=== PATIENT | male | born 1950 | race African-American/Black ===

== ENCOUNTER → 2016-04-21 | Outpatient (CLI) | payer OTHER ==
[~2016-04-21] MED LIST: ALBU18002 INH; ALBU1AER9 INH; AMLO-110 PO; BNC/20125 PO; CALC-393 PO; CALC500C70 PO; CHOL400T PO; CLOP1TAB15 PO; CLOP1TAB5 PO; HYDC25 PO; LPT40 PO; MISCCAP80 PO; MOME6000 NAE; MULTTAB58 PO; NSNN50 NAE; PROBIOTICS PO; SYMIN8045 INH; TADA2.5T PO; VGR25 PO
[2016-04-21 11:45] LABS: BASO % 0.5 %; BASO ABS # 0.02 K/uL (0-0.2); COMPLETE YES; EOS % 3.6 %; HEMATOCRIT 39.8 % (42-52); IG% 0.3 %; LYMPH % 18.4 %; LYMPH ABS # 0.71 K/uL (1.2-3.4); MEAN CELL VOLUME 87.3 fL (80-100); MEAN CORPUSCULAR HEMOGLOBIN 29.4 pg (25-34); MEAN CORPUSCULAR HGB CONC 33.7 g/dl (32-36); MONO % 10.1 %; NEUT % 67.1 %; PLATELET COUNT 160 K/uL (130-400); RED BLOOD COUNT 4.56 M/uL (4.7-6.1); WHITE BLOOD COUNT 3.85 K/uL (4.8-10.8)
[2016-04-21 11:56] LABS: ALT/SGPT 30 U/L (12-78); BLOOD UREA NITROGEN 14 mg/dl (7-18); BUN/CREATININE RATIO 10.2 (10-20); CALCIUM 9.3 mg/dl (8.5-10.1); CARBON DIOXIDE 25 mmol/L (21-32); CHLORIDE 104 mmol/L (98-107); CHOLESTEROL 182 mg/dl (0-200); GLUCOSE 89 mg/dl (70-99); POTASSIUM 3.9 mmol/L (3.5-5.1); SODIUM 141 mmol/L (136-145); TRIGLYCERIDES 49 mg/dl (0-150); VERY LOW DENSITY LIPOPROT CALC 10 mg/dl
[2016-04-21 12:01] LABS: ALB/GLOB RATIO 0.9 (0.9-2); ALKALINE PHOSPHATASE 47 U/L (45-117); AST/SGOT 24 U/L (15-37); CHOLESTEROL/HDL RATIO 2.2; FERRITIN 54.8 ng/ml (8.0-388.0); HDL CHOLESTEROL 83 mg/dl; LDL CHOLESTEROL CALCULATED 89 mg/dl
== END | disposition home or self-care (01) ==
LOC: C.LAB 09:57
PROVIDERS: ATTEND Internal Medicine Geriatric Medicine
DX: I10 Essential (primary) hypertension (principal); J45.909 Unspecified asthma, uncomplicated; D64.9 Anemia, unspecified; M19.90 Unspecified osteoarthritis, unspecified site; I67.2 Cerebral atherosclerosis

== ENCOUNTER → 2016-05-30 | Outpatient (CLI) | payer OTHER ==
[~2016-05-30] MED LIST changes: -ALBU18002 INH; -CALC500C70 PO; -CLOP1TAB15 PO; -MISCCAP80 PO; -MOME6000 NAE; -TADA2.5T PO
[2016-05-30 13:43] LABS: URINE APPEARANCE CLEAR (CLEAR); URINE BILIRUBIN NEG (NEG); URINE COLOR YELLOW; URINE NITRITE NEG (NEG); URINE SPECIFIC GRAVITY 1.015 (1.000-1.030); UROBILINOGEN NEG (NEG)
[2016-05-30 13:57] LABS: MANUAL MICROSCOPIC REQUIRED? NO; REVIEW REQ? NO
== END | disposition home or self-care (01) ==
LOC: C.LABBC 09:57
PROVIDERS: ATTEND Physician Assistant
DX: R25.2 Cramp and spasm (principal); R35.0 Frequency of micturition

== ENCOUNTER → 2016-11-25 | Outpatient (CLI) | payer OTHER ==
[~2016-11-25] MED LIST changes: +ALBU18002 INH; +CALC500C70 PO; +CLOP1TAB15 PO; +MISCCAP80 PO; +MOME6000 NAE; +TADA2.5T PO
[2016-11-25 20:13] LABS: BASO % 0.7 %; BASO ABS # 0.03 K/uL (0-0.2); COMPLETE YES; EOS % 5.5 %; HEMATOCRIT 40.5 % (42-52); LYMPH % 27.8 %; LYMPH ABS # 1.27 K/uL (1.2-3.4); MEAN CELL VOLUME 87.5 fL (80-100); MEAN CORPUSCULAR HEMOGLOBIN 29.8 pg (25-34); MEAN CORPUSCULAR HGB CONC 34.1 g/dl (32-36); MEAN PLATELET VOLUME 12.1 fL (7.4-10.4); MONO % 9.4 %; NEUT % 56.6 %; PLATELET COUNT 163 K/uL (130-400); RED BLOOD COUNT 4.63 M/uL (4.7-6.1); WHITE BLOOD COUNT 4.57 K/uL (4.8-10.8)
[2016-11-25 20:36] LABS: ALT/SGPT 22 U/L (12-78); BLOOD UREA NITROGEN 17 mg/dl (7-18); BUN/CREATININE RATIO 13.2 (10-20); CALCIUM 9.3 mg/dl (8.5-10.1); CARBON DIOXIDE 28 mmol/L (21-32); CHLORIDE 107 mmol/L (98-107); CHOLESTEROL 149 mg/dl (0-200); GLUCOSE 93 mg/dl (70-99); POTASSIUM 3.6 mmol/L (3.5-5.1); SODIUM 141 mmol/L (136-145)
[2016-11-25 20:47] LABS: ALB/GLOB RATIO 0.9 (0.9-2); ALKALINE PHOSPHATASE 63 U/L (45-117); AST/SGOT 20 U/L (15-37); HDL CHOLESTEROL 75 mg/dl; LDL CHOLESTEROL CALCULATED 62 mg/dl; TRIGLYCERIDES 62 mg/dl (0-150); VERY LOW DENSITY LIPOPROT CALC 12 mg/dl
--- NOTE | 2016-12-10 06:14 | CODING QUERY MEDICAL NECESSITY ---
CQSUPPORTING DIAGNOSIS NEEDED A supporting diagnosis is required for the test/procedure performed on this patient in order for us to be reimbursed by the patient's insurance. Please provide a supporting diagnosis for the following test/procedure listed below next to the test name along with your signature. *If there is no additional diagnosis for this patient that would support the following test/procedure please document that below next to the test/procedure. Test(s)/Procedure(s) that require a supporting diagnosis: DOS 11/25/16 VITAMIN B12 Provider Signature: Date: Thank you Ambreen Alvarez [employer] Once completed, please kindly fax back to [phone] For questions please call [phone]
== END | disposition home or self-care (01) ==
LOC: C.LAB 18:52
PROVIDERS: ATTEND Internal Medicine Geriatric Medicine
DX: D64.9 Anemia, unspecified (principal); I10 Essential (primary) hypertension; I67.2 Cerebral atherosclerosis; N40.0 Benign prostatic hyperplasia without lower urinary tract symptoms; Z86.73 Personal history of transient ischemic attack (TIA), and cerebral infarction without residual deficits

== ENCOUNTER → 2016-12-25 | Day surgery (SDC) | payer OTHER ==
[2016-12-10 08:36] VITALS: Ht 175.3 cm; Wt 85.5 kg
[~2016-12-25] VITALS: Ht 175.3 cm; Wt 85.5 kg
[~2016-12-25] MED LIST changes: -ALBU1AER9 INH; +BUPIVACAINE 0.25% 2.5MG/ML PF 10 ML VIAL ONE; -CALC-393 PO; -CHOL400T PO; -CLOP1TAB5 PO; -HYDC25 PO; +IOPAMIDOL INJ 61% 15 ML VIAL ONE; +LIDOCAINE HCL 1% MPF 5 ML VIAL ONE; -LPT40 PO; -NSNN50 NAE; -PROBIOTICS PO; -VGR25 PO
--- NOTE | 2016-12-25 14:48 | History & Physical Bridge - SC ---
H&P Re-Evaluation Bridge Note: I have examined the patient, reviewed the History & Physical and in the interval since the performance of the History & Physical I have noted the following changes of clinical significance: No changes noted
[2016-12-25 15:13] VITALS: TEMP 37.7
--- NOTE | 2016-12-25 15:15 | Discharge Instructions ---
Discharge Instructions Date of Service Dec 25, 2016. Visit Reason for Visit: Sacroiliitis Discharge Discharge Diagnosis / Problem: low back pain Discharge Goals Goal(s): Decrease discomfort, Improve function Activity Recommendations Activity Limitations: resume your previous activity Anesthesia . Post Anesthesia Instructions: If you have had General Anesthesia or IV Sedation: * Do not drive today. * Resume driving when surgeon permits. * Do not make important decisions or sign legal documents today. * Call surgeon for: 1. Temperature elevations greater than 101 degrees F. 2. Uncontrollable pain. 3. Excessive bleeding. 4. Persistent nausea and vomiting. 5. Medication intolerance (nausea, vomiting or rash). * For nausea and vomiting use only clear liquids such as: tea, soda, bouillon until nausea subsides, then gradually increase diet as tolerated. * If you have any concerns or questions, call your surgeon's office. If physician is unavailable and it is an emergency, call 911 or go to the nearest emergency room. . Diet Recommendations Recommended Home Diet: resume previous diet Procedures Procedures Performed: BILATERAL SACROILIAC JOINT INJECTION Pending Studies Studies pending at discharge: no Medical Emergencies . Who to Call and When: Medical Emergencies: If at any time you feel your situation is an emergency, please call 911 immediately. . Non-Emergent Contact Non-Emergency issues call your: Specialist . . "Provider Documentation" section prepared by Minor Butler. .
[2016-12-25 15:21] VITALS: BP 134/83; PULSE 71; O2SAT 98
--- NOTE | 2016-12-25 15:38 | OPERATIVE REPORT ---
DATE OF OPERATION: 12/25/2016 PREOPERATIVE DIAGNOSIS: Bilateral sacroiliitis. POSTOPERATIVE DIAGNOSIS: Same. PROCEDURE: Bilateral sacroiliac joint injection under fluoroscopic guidance. SURGEON: Dr. Minor Butler. INDICATIONS: The patient is a 66-year-old -[place] male who had received SI injections in the past, last in January 2015. He reports just recently that a similar pain started returning and being problematic to him. He presents today for injections to provide him with relief. PHYSICAL EXAMINATION: Pleasant male seated comfortably in no apparent distress. He has positive 10/10 tenderness to palpation of the SI joints with positive Lynn maneuver bilaterally, normal motor and sensory exam of his lower extremities. CONSENT: Verbal and written consent was obtained from the patient. Risks and benefits were reviewed. Risks include but are not limited to abscess and allergic reaction. The patient wishes to proceed. PROCEDURE: The patient was taken back to the special procedures room of the [facility] where he was maintained in a prone position. Backside was cleansed with Betadine x3 and a dry sterile dressing was applied. Fluoroscope was used to identify the left sacroiliac joint. The overlying skin was anesthetized with 4 mL of lidocaine 1% with a 21-gauge 1.5-inch needle. A 25 gauge 3.5 inch spinal needle was then directed into the joint. Isovue 300 contrast 0.25 mL was injected in which demonstrated intraarticular uptake. He then underwent injection after negative aspiration of 40 mg of Depo-Medrol and 1.5 mL of bupivacaine 0.25%. The right SI joint then was fluoroscopically identified and the overlying skin was anesthetized with 2.5 mL of lidocaine 1% with a 25 gauge 1.5-inch needle. A 25 gauge 3.5 inch spinal needle was then directed into the joint and it was then injected with Isovue 300 contrast 0.25 mL which demonstrated intraarticular uptake. He then underwent injection after negative aspiration of 40 mg of Depo-Medrol and 1.5 mL of bupivacaine 0.25%. Injections were well tolerated. He will follow up in 4 weeks' time. DISPOSITION: 1. The patient is taken out into the discharge recovery area where he will be discharged home once discharge criteria have been met. 2. Follow up in the [facility] office in 2-4 weeks. I attest to the content of the Intraoperative Record and any orders documented therein. Any exception s are noted below.
== END | disposition home or self-care (01) ==
LOC: X.SURG 14:15
PROVIDERS: ATTEND Physical Medicine & Rehabilitation
DX: M46.1 Sacroiliitis, not elsewhere classified (principal)

== ENCOUNTER → 2017-06-05 | Outpatient (CLI) | payer OTHER ==
[~2017-06-05] MED LIST changes: -BUPIVACAINE 0.25% 2.5MG/ML PF 10 ML VIAL ONE; -IOPAMIDOL INJ 61% 15 ML VIAL ONE; -LIDOCAINE HCL 1% MPF 5 ML VIAL ONE
[2017-06-05 15:11] LABS: BASO % 0.5 %; BASO ABS # 0.02 K/uL (0-0.2); EOS % 5.5 %; EOS ABS # 0.21 K/uL (0-0.5); HEMATOCRIT 40.8 % (42-52); HEMOGLOBIN 13.5 g/dL (14.0-18.0); LYMPH % 31.2 %; MEAN CELL VOLUME 88.7 fL (80-100); MEAN CORPUSCULAR HEMOGLOBIN 29.3 pg (25-34); MEAN CORPUSCULAR HGB CONC 33.1 g/dl (32-36); MEAN PLATELET VOLUME 11.7 fL (7.4-10.4); MONO ABS # 0.27 K/uL (0.11-0.59); NEUT % 55.8 %; NEUT ABS # 2.15 K/uL (1.4-6.5); PLATELET COUNT 177 K/uL (130-400); RED CELL DISTRIBUTION WIDTH CV 13.5 % (11.5-14.5); RED CELL DISTRIBUTION WIDTH SD 43.8 fL (36.4-46.3); WHITE BLOOD COUNT 3.85 K/uL (4.8-10.8)
[2017-06-05 15:28] LABS: BLOOD UREA NITROGEN 18 mg/dl (7-18); CALCIUM 9.1 mg/dl (8.5-10.1); CARBON DIOXIDE 27 mmol/L (21-32); GLUCOSE 89 mg/dl (70-99); POTASSIUM 3.8 mmol/L (3.5-5.1); SODIUM 137 mmol/L (136-145)
== END | disposition home or self-care (01) ==
LOC: C.LAB 14:02
PROVIDERS: ATTEND Internal Medicine Geriatric Medicine
DX: I10 Essential (primary) hypertension (principal); D64.9 Anemia, unspecified

== ENCOUNTER → 2017-06-08 | Outpatient (CLI) | payer OTHER ==
--- NOTE | 2017-06-08 10:28 | DIAGNOSTIC IMAGING REPORT ---
CHEST 2 VIEWS ROUTINE CLINICAL HISTORY: R05 Cough COMPARISON STUDY: CT scan performed March 2011 FINDINGS: The heart is normal in size. There is aortic tortuosity. There is no failure. There is no focal pulmonary consolidation. There is a 9 mm right apical pulmonary nodule. This potentially corresponds to the right apical opacity described in the prior 2011 CT scan. It would seem prudent to obtain a repeat CT scan for further evaluation. There are no pleural effusions. IMPRESSION: 1. Nonspecific 9 mm right apical opacity. CT scanning is recommended in follow-up. 2. No evidence of pneumonia Electronically signed by: Bg Monk M.D. 06/08/2017 10:27 AM Dictated Date/Time: 06/08/2017 10:23 AM
== END | disposition home or self-care (01) ==
LOC: C.RADBC 09:57
PROVIDERS: ATTEND Internal Medicine Geriatric Medicine
DX: R05 Cough (principal)

== ENCOUNTER → 2017-06-16 | Outpatient (CLI) | payer OTHER ==
--- NOTE | 2017-06-16 08:19 | DIAGNOSTIC IMAGING REPORT ---
(CHEST) THORAX WITHOUT CT DOSE: 372.13 mGy.cm HISTORY: Abnormal chest x-ray. Follow-up. TECHNIQUE: Multiaxial CT images of the chest were performed without contrast. A dose lowering technique was utilized adhering to the principles of ALARA. COMPARISON: Chest CT 04/08/2011. Abdominal MRI 10/24/2011. FINDINGS: Multiple subcentimeter biapical nodules with the largest within the left lung apex measuring 8 mm on image 48. These are stable compared to the 2012 examination and are therefore likely benign. There is an 1 cm lobular nodule within the right upper lobe on image 73. This likely corresponds the chest x-ray abnormality. This is also stable compared to the prior study. Stable 3 mm nodule within the right upper lobe on image 88. Stable 3 mm nodule within the right upper lobe on image 116. No focal lung consolidations to suggest pneumonia. No pneumothorax. No pleural effusions. The central airways are patent. No suspicious lytic or blastic osseous lesions. Multiple scattered hypodense lesions are seen throughout the liver. The majority of these are stable in size and correspond to the previously described hepatic cysts and hemangiomas. Dominant lesion within the right hepatic lobe measures 3.1 cm. The 2.7 cm hypodense lesion within the posterior segment of the right hepatic lobe has increased in size but was previously described as a hemangioma. The unenhanced spleen and adrenal glands are unremarkable. No mediastinal or hilar lymphadenopathy. IMPRESSION: 1. Multiple bilateral upper lobe/apical nodules as described above which are stable compared to the prior study. The 6 year stability favors a benign process. No new pulmonary nodules identified. 2. Multiple hypodense lesions seen scattered throughout the liver which the majority are stable in size. The 2.7 cm lesion within the posterior segment of the right hepatic lobe has increased in size. However, these were described as a common of cysts and hemangiomas on the prior study. Electronically signed by: Ronaldo Hogue M.D. 06/16/2017 8:17 AM Dictated Date/Time: 06/16/2017 8:02 AM
== END | disposition home or self-care (01) ==
LOC: C.CTS 07:49
PROVIDERS: ATTEND Internal Medicine Geriatric Medicine
DX: R05 Cough (principal); R93.8 Abnormal findings on diagnostic imaging of other specified body structures; R91.8 Other nonspecific abnormal finding of lung field; K76.9 Liver disease, unspecified

== ENCOUNTER → 2017-07-13 | Outpatient (CLI) | payer OTHER ==
--- NOTE | 2017-07-13 08:50 | DIAGNOSTIC IMAGING REPORT ---
FUSION CT SINUSES W/O CLINICAL HISTORY: 66 years-old Male presenting with COUGH, RHINITIS. TECHNIQUE: Multidetector CT of the sinuses was performed without the use of intravenous contrast. IV contrast: None. A dose lowering technique was used consistent with the principles of ALARA (as low as reasonably achievable). COMPARISON: None. CT DOSE (mGy.cm): The estimated cumulative dose is 608.33 mGy.cm. FINDINGS: Color Sprayer topogram: Unremarkable. The left maxillary canine, first and second premolar, and first molar are basically absent. A replacement tooth is evident at the level of the canine. Mild mucosal thickening in the maxillary sinuses, right greater than left. Mucosal thickening in ethmoid air cells also evident. Mastoid air cells and middle ears clear. No osseous erosion or sclerosis. Significant deviation of the bony nasal septum to the left, which appears chronic. Bilateral Shree cells suggested greater on the left. Ostiomeatal units are minimally narrowed by mucosal thickening. Similarly, nasal frontoethmoidal recesses minimally narrowed by mucosal thickening. Albino bullosa of the right middle turbinate. Bilateral Onodi cells noted with aerated secretions in the left are noted cell (series 300 image 47). Possible bony dehiscence of the right carotid siphon. No bony dehiscence of the optic canals or the left carotid siphon. Orbits normal. Limited intracranial evaluation demonstrates age-related changes. Superficial soft tissues of the face within normal limits. Skull base intact. IMPRESSION: 1. Aerated secretions in the left Onodi cell could suggest acute sinusitis. No current evidence of chronic sinusitis. 2. Multifocal mild mucosal thickening with resultant minimal narrowing of the ostiomeatal units and nasal frontoethmoidal recesses. 3. Bilateral Onodi cells, bilateral Shree cells, left middle turbinate albino bullosa, and possible bony dehiscence of the right carotid siphon. Electronically signed by: Tony Brown M.D. 07/13/2017 8:49 AM Dictated Date/Time: 07/13/2017 8:41 AM
== END | disposition home or self-care (01) ==
LOC: C.CTS 08:30
PROVIDERS: ATTEND Internal Medicine Critical Care Medicine
DX: R05 Cough (principal); J31.0 Chronic rhinitis

== ENCOUNTER 2021-08-29 09:36 | Observation (INO) ==
[2021-08-29 10:01] LABS: Hematocrit (blood only) 41.4 % (42-52); Hemoglobin 14.6 g/dL (14.0-18.0); Mean Corpuscular Hemoglobin 30.7 pg (25-34); Mean Corpuscular Hgb Conc 35.3 g/dL (32-36); Mean Corpuscular Volume 87.2 fL (80-100); RDW Standard Deviation 44.6 fL (36.4-46.3); Red Blood Count 4.75 M/uL (4.7-6.1); White Blood Count 3.06 K/uL (4.8-10.8)
[2021-08-29 10:02] LABS: Basophils # (auto) 0.02 K/uL (0-0.2); Basophils % (auto) 0.7 %; Eosinophils # (auto) 0.23 K/uL (0-0.5); Eosinophils % (auto) 7.5 %; Lymphocytes # (auto) 1.06 K/uL (1.2-3.4); Lymphocytes % (auto) 34.6 %; Mean Platelet Volume 11.2 fL (7.4-10.4); Monocytes # (auto) 0.32 K/uL (0.11-0.59); Monocytes % (auto) 10.5 %; Neutrophils # (auto) 1.43 K/uL (1.4-6.5); Neutrophils % (auto) 46.7 %; Platelet Count 170 K/uL (130-400); RDW Coefficient of Variation 13.8 % (11.5-14.5)
[2021-08-29] MEDS ORDERED: SODIUM CHLORIDE 0.9% 1000ML 1,000 ML IV ONE (10:03)
--- NOTE | 2021-08-29 10:11 | Emergency Department Note ---
History of Present Illness General Chief complaint: Vertigo Stated complaint: DIZZINESS, NAUSEA Time Seen by Provider: 08/29/21 09:48 Source: patient, family, RN notes reviewed and old records reviewed Mode of arrival: ambulatory Limitations: no limitations History of Present Illness This Patient is a 70-year-old male who comes in after complaining of dizziness. He was in his usual state of health and has had no recent illness around 630 this morning he had 2 brief episodes where he felt suddenly dizzy like the room was spinning it went away and he started PT that he is doing for a back issue and suddenly it got worse and felt like the room was spinning he threw up several times and felt sweaty. He feels better at present and has no symptoms. He denies that he had any focal numbness or weakness anywhere no headache. He has had no recent fall or trauma there is no syncope or presyncope. No difficulty speaking or swallowing he felt slightly tingly all over. It was better if he would close his eyes it was worse with movement. No neck stiffness or headache. Denies chest pain, shortness of breath, palpitations. No change in vision. He has a history of TIAs in the past and his last one was June which presented with right-sided weakness which resolved. 10 years ago he had a TIA which had left-sided weakness and double vision. Home Medications Medication Instructions Recorded Confirmed Type calcium carbonate 500 mg-vitamin 1 tab PO QAM 12/14/17 08/15/21 History D3 5 mcg (200 unit) tablet (Calcium 500 + D) lactobacillus combination no.4 3 3,000 mmu cells PO QAM 12/14/17 08/15/21 History billion cell capsule (Probiotic) multivitamin 1 tab PO QAM 12/14/17 08/15/21 History omega 8-ady-aov-fish oil 1,000 mg 1 cap PO QAM 11/17/18 08/15/21 History (120 mg-180 mg) capsule (Fish Oil) cetirizine 10 mg capsule (Zyrtec) 10 mg PO HS #1 cap 09/09/19 08/15/21 Rx cyclobenzaprine 10 mg tablet 10 mg PO TID PRN #60 tab 09/09/19 08/15/21 Rx cholecalciferol (vitamin D3) 100 100 mcg PO QAM 01/14/20 08/15/21 History mcg (4,000 unit) capsule tadalafil 5 mg tablet 5.5 mg PO HS #90 tab 09/17/20 08/15/21 Rx amlodipine 10 mg tablet 10 mg PO QAM #90 tab 10/08/20 08/15/21 Rx clopidogrel 75 mg tablet (Plavix) 75 mg PO QAM #90 tab 10/22/20 08/15/21 Rx potassium chloride 20 mEq 20 meq PO BID #180 tab 03/11/21 08/15/21 Rx tablet,extended release sildenafil 100 mg tablet (Viagra) 100 mg PO DAILY PRN #30 tab 04/25/21 08/15/21 Rx hydrochlorothiazide 25 mg tablet 25 mg PO QAM #90 tab 06/12/21 08/15/21 Rx Allergies Allergy/AdvReac Type Severity Reaction Status Date / Time silodosin [From Rapaflo] AdvReac Intermediate Insomnia Verified 08/15/21 08:40 tamsulosin AdvReac Intermediate Hypotension Verified 08/15/21 08:40 losartan AdvReac Mild Cough Verified 08/15/21 08:40 olmesartan [From Benicar] AdvReac Mild cough Verified 08/15/21 08:40 Past Med/Surg History Medical History Asthma HX OF > NO MEDICATIONS OR PROBLEMS CURRENTLY BPH (benign prostatic hyperplasia) Chronic back pain Chronic right sacroiliac joint pain Cough due to angiotensin-converting enzyme inhibitor switched to amlodipine due to this Hypertension Kidney stones HISTORY OF Lumbar spinal stenosis Osteoarthritis Right lumbar radiculopathy Transient ischemic attack (TIA) X3. LAST EPISODE JUNE 2020. NO RESIDUALS. TAKES PLAVIX Surgical History H/O prostate biopsy x2 > benign History of bronchoscopy AT AGE 17 History of colonoscopy 04/2012 repeat 10 yrs History of esophagogastroduodenoscopy (EGD) History of tooth extraction S/P epidural steroid injection Status post excision of lipoma HX > back Family History Sister Family history of diabetes mellitus Breast cancer Unknown Bipolar disorder Bleeding disorder Mother , age 93, after hip fracture and surgery Deafness Father Tuberculosis Prostate cancer Lung cancer Hypertension Family history of diabetes mellitus Sister Lung cancer Hypertension Denies family history of Ovarian cancer Myocardial infarction Colorectal cancer Social History Smoking Status: Never smoker Tobacco Type: Cigarettes Age Started Using Tobacco: 14; Age Quit Using Tobacco: 28; Cigarettes Per Day: 3 cigarettes a day; Second Hand Exposure: No; Hx Alcohol Use: Yes Alcohol type: wine Alcohol Intake Frequency: Monthly or Less Hx Substance Use: No Preferred Language: Turkish Communication Ability: Effective Visual Impairment: Limited Hearing Ability: Normal Court Collections Officer Required: No Beliefs That Will Affect Care: None marital status: Current Living Situation: Spouse current occupational status: retired current occupation: dentist How many Children do You have: 2 Feels Safe at Home: Yes Childhood Exposure to Second-Hand Smoke: Yes caffeine: Yes (coffee daily ) Dental Care, Regularly: Yes Physical Activity Frequency: 5-6 Times per Week Seatbelt Use: always Sunscreen Use: Yes Assistive Devices: Glasses Immunizations: He will history 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 [employer] Review of Systems A total of 10 systems reviewed and were otherwise negative He denies any significant allergies to me and specifically denies any allergies to IV contrast which he says he has had before Physical Exam Vital Signs Vital Signs - 24 hr 08/29/21 09:42 08/29/21 09:49 08/29/21 10:00 Temperature 36.9 C Temperature Source Oral Pulse Rate 69 72 Pulse Rate from SpO2 Sensor Pulse Rhythm Regular Pulse Strength Normal Respiratory Rate 19 19 Respiratory Effort / Characteristics Non-Labored Respiratory Depth Normal Respiratory Pattern Regular Blood Pressure 165/92 H 161/95 H Blood Pressure Mean 116 117 Blood Pressure Position Lying Pulse Oximetry 100 99 99 Oxygen Delivery Method Room Air Room Air Room Air Sepsis Recent Fever Within 48 Hours No Sepsis New/Unexplained Change in Mental Status N/A Sepsis Action Taken by Nursing No Action Required 08/29/21 10:30 08/29/21 11:06 08/29/21 11:30 Temperature Temperature Source Pulse Rate 63 70 69 Pulse Rate from SpO2 Sensor 64 Pulse Rhythm Pulse Strength Respiratory Rate 18 19 19 Respiratory Effort / Characteristics Respiratory Depth Respiratory Pattern Blood Pressure 139/88 147/99 H 156/99 H Blood Pressure Mean 105 115 118 Blood Pressure Position Pulse Oximetry 99 99 99 Oxygen Delivery Method Room Air Room Air Room Air Sepsis Recent Fever Within 48 Hours Sepsis New/Unexplained Change in Mental Status Sepsis Action Taken by Nursing 08/29/21 12:00 08/29/21 12:30 08/29/21 13:00 Temperature Temperature Source Pulse Rate 66 77 66 Pulse Rate from SpO2 Sensor Pulse Rhythm Pulse Strength Respiratory Rate 21 22 19 Respiratory Effort / Characteristics Respiratory Depth Respiratory Pattern Blood Pressure 144/80 H 143/90 H 141/90 H Blood Pressure Mean 101 107 107 Blood Pressure Position Pulse Oximetry 98 99 99 Oxygen Delivery Method Room Air Room Air Room Air Sepsis Recent Fever Within 48 Hours Sepsis New/Unexplained Change in Mental Status Sepsis Action Taken by Nursing 08/29/21 13:30 08/29/21 14:58 08/29/21 15:00 Temperature Temperature Source Pulse Rate 64 68 Pulse Rate from SpO2 Sensor Pulse Rhythm Pulse Strength Respiratory Rate 15 19 Respiratory Effort / Characteristics Respiratory Depth Respiratory Pattern Blood Pressure 133/82 151/93 H 143/86 H Blood Pressure Mean 99 112 105 Blood Pressure Position Pulse Oximetry 98 98 Oxygen Delivery Method Room Air Room Air Sepsis Recent Fever Within 48 Hours Sepsis New/Unexplained Change in Mental Status Sepsis Action Taken by Nursing General: Well developed well nourished not ill-appearing older male who appears in no acute distress, breathing comfortably on room air. Normal speech nonslur red. Alert and orient x3 answers all questions appropriately HEENT: Normal cephalic atraumatic. Pupils are equal round and reactive to light. No nystagmus. No facial asymmetry or droop extraocular movements are intact. Oropharynx is pink with moist mucous membranes. No swelling of the mouth lips or tongue. Neck: Supple with a midline trachea. No meningeal signs or stiffness, no JVD or bruits. No Stridor. Chest: Clear to auscultation bilaterally. No wheezes or rhonchi. No increased work of breathing. Heart: Regular rate and rhythm without murmurs or gallops. Abdomen: Soft nontender, nondistended without rebound guarding or rigidity. Extremities: No cyanosis clubbing or edema. No calf tenderness or assymetry Spine/Back. Non tender to palpation. No CVA tenderness Skin: Good turgor without rashes. Neurologic exam: Cranial nerves two through 12 are intact. Motor and sensation are intact and symmetrical throughout. Akqpvd-dc-abby intact. No pronator drift. Normal [id number]-io-cawr. Course Reevaluation(s) Reevaluation #1: I Checked on the patient and he is resting comfortably. he remains asymptomatic without pain or any neurologic deficits.. I did discuss the results that we duggan ve thus far with the patient and his family. I also discussed giving him some meclizine and we are going to give him 12.5. He does need to use the bathroom and I called the nursing staff and they are can use a jug so he does not get out of bed. Time: 10:40 Reevaluation #2: I checked the patient when he came back from CT. He said the movement made the dizziness start again. he has received the meclizine shortly before I saw him he says he feels better the symptoms were definitely worse with movement. The CAT scan of his head was unremarkable and waiting on the angiograms and I did discuss results with the patient his again. Time: 11:25 Reevaluation #3: I did receive the reports of the CTA and when talked to patient's family there is concern for a small area of dissection right vertebral artery. Patient was given additional fluids and Zofran he has some nausea. I have paged neurology Time: 12:05 Administered Medications Discontinued Medications Sodium Chloride (Nss 1000ml) 1,000 mls @ 999 mls/hr IV .Q1H1M ONE Stop: 08/29/21 11:03 Last Infusion: 08/29/21 11:53 Dose: 0 mls/hr Documented by: [id number] Admin: 08/29/21 10:13 Dose: 999 mls/hr Documented by: [id number] Sodium Chloride (Nss 1000ml) 500 mls @ 999 mls/hr IV .Q31M ONE Stop: 08/29/21 12:31 Last Infusion: 08/29/21 15:05 Dose: 0 mls/hr Documented by: [id number] Admin: 08/29/21 12:35 Dose: 999 mls/hr Documented by: [id number] Ioversol (Optiray 320 125ml) 120 ml IV ONCE ONE Stop: 08/29/21 11:03 Last Admin: 08/29/21 11:02 Dose: 120 ml Documented by: [id number] Meclizine HCl (Meclizine 12.5 Mg Tab) 12.5 mg PO NOW STA Stop: 08/29/21 10:43 Last Admin: 08/29/21 11:05 Dose: 12.5 mg Documented by: [id number] Ondansetron HCl (Ondansetron Inj 2 Mg/Ml 2 Ml Vial) 4 mg IV NOW STA Stop: 08/29/21 12:02 Last Admin: 08/29/21 12:34 Dose: 4 mg Documented by: [id number] Critical Care Time Critical Care Time: Yes Total Critical Care Time: 45 Due to the patient's strokelike symptoms and need for significant work-up, consultation with neurology, telemetry stroke neurology and the hospitalist with frequent reassessment of the patient and discussion with his family members, I have personally spent greater than 45 minutes of critical care time in the direct management of this patient. This includes bedside care, interpretation o f diagnostic studies, and testing, discussion with consultants, patient, and family members, and other required patient management activities. This 45 minutes is in excess of all separately billable procedures. Medical Decision Making Differential Diagnosis Central neurologic process, stroke, TIA, vertigo, arrhythmia, electrolyte or metabolic abnormality, infection, anemia Medical Records Attestation: I reviewed the patient's medical records. Home Medications Current Medication List: was personally reviewed by me Laboratory Data Attestation: I reviewed the patient's lab results. Result diagrams: 08/29/21 09:50 08/29/21 09:50 Lab Results 08/29/21 08/29/21 08/29/21 Range/Units 09:50 09:50 09:50 WBC 3.06 L (4.8-10.8) K/uL RBC 4.75 (4.7-6.1) M/uL Hgb 14.6 (14.0-18.0) g/dL Hct 41.4 L (42-52) % MCV 87.2 (80-100) fL MCH 30.7 (25-34) pg MCHC 35.3 (32-36) g/dL RDW Std Deviation 44.6 (36.4-46.3) fL RDW Coeff of Payam 13.8 (11.5-14.5) % Plt Count 170 (130-400) K/uL MPV 11.2 H (7.4-10.4) fL Immature Gran % (Auto) 0.0 % Neut % (Auto) 46.7 % Lymph % (Auto) 34.6 % [place] % (Auto) 10.5 % Eos % (Auto) 7.5 % Baso % (Auto) 0.7 % Neut # (Auto) 1.43 (1.4-6.5) K/uL Lymph # (Auto) 1.06 L (1.2-3.4) K/uL [place] # (Auto) 0.32 (0.11-0.59) K/uL Eos # (Auto) 0.23 (0-0.5) K/uL Baso # (Auto) 0.02 (0-0.2) K/uL Immature Gran # (Auto) 0.00 (0.00-0.02) K/uL PT 10.9 (9.0-12.0) Seconds INR 1.0 (0.9-1.1) APTT 23.6 (21.0-31.0) Seconds PTT Ratio 0.9 Sodium 138 (136-145) mmol/L Potassium 3.3 L (3.5-5.1) mmol/L Chloride 104 (98-107) mmol/L Carbon Dioxide 27 (21-32) mmol/L Anion Gap 7 (3-11) BUN 11 (6-23) mg/dl Creatinine 1.07 (0.6-1.4) mg/dl Est Cr Clr Drug Dosing 62.4 ml/min Est GFR ( Amer) 80.0 ml/min Est GFR (Non-Af Amer) 69.0 ml/min BUN/Creatinine Ratio 10.3 (10-20) Glucose 105 H (70-99(Fasting)) mg/dl Calcium 9.2 (8.5-10.1) mg/dl Magnesium (1.7-2.4) mg/dl Total Bilirubin 0.7 (0.2-1.0) mg/dl AST 27 (13-39) U/L ALT 28 (7-52) U/L Alkaline Phosphatase 61 (34-104) U/L Troponin I High Sens (0-20) pg/ml Total Protein 7.2 (6.0-8.3) gm/dl Albumin 4.0 (3.4-5.0) gm/dl Globulin 3.2 (2.5-4.0) gm/dl Albumin/Globulin Ratio 1.3 (0.9-2) SARS-CoV-2, RNA, NAAT (NEGATIVE) 08/29/21 08/29/21 Range/Units 09:50 13:35 WBC (4.8-10.8) K/uL RBC (4.7-6.1) M/uL Hgb (14.0-18.0) g/dL Hct (42-52) % MCV (80-100) fL MCH (25-34) pg MCHC (32-36) g/dL RDW Std Deviation (36.4-46.3) fL RDW Coeff of Payam (11.5-14.5) % Plt Count (130-400) K/uL MPV (7.4-10.4) fL Immature Gran % (Auto) % Neut % (Auto) % Lymph % (Auto) % [place] % (Auto) % Eos % (Auto) % Baso % (Auto) % Neut # (Auto) (1.4-6.5) K/uL Lymph # (Auto) (1.2-3.4) K/uL [place] # (Auto) (0.11-0.59) K/uL Eos # (Auto) (0-0.5) K/uL Baso # (Auto) (0-0.2) K/uL Immature Gran # (Auto) (0.00-0.02) K/uL PT (9.0-12.0) Seconds INR (0.9-1.1) APTT (21.0-31.0) Seconds PTT Ratio Sodium (136-145) mmol/L Potassium (3.5-5.1) mmol/L Chloride (98-107) mmol/L Carbon Dioxide (21-32) mmol/L Anion Gap (3-11) BUN (6-23) mg/dl Creatinine (0.6-1.4) mg/dl Est Cr Clr Drug Dosing ml/min Est GFR ( Amer) ml/min Est GFR (Non-Af Amer) ml/min BUN/Creatinine Ratio (10-20) Glucose (70-99(Fasting)) mg/dl Calcium (8.5-10.1) mg/dl Magnesium 1.9 (1.7-2.4) mg/dl Total Bilirubin (0.2-1.0) mg/dl AST (13-39) U/L ALT (7-52) U/L Alkaline Phosphatase (34-104) U/L Troponin I High Sens 3.7 (0-20) pg/ml Total Protein (6.0-8.3) gm/dl Albumin (3.4-5.0) gm/dl Globulin (2.5-4.0) gm/dl Albumin/Globulin Ratio (0.9-2) SARS-CoV-2, RNA, NAAT POSITIVE A* (NEGATIVE) Imaging Data Attestation: I personally reviewed and interpreted this imaging study as follows: My Impression: Head CThemorrhage or mass-effect seen upon my interpretation Radiologist's Impression: Head CT 08/29/21 10:03 CT OF THE HEAD WITHOUT CONTRAST CLINICAL HISTORY: Stroke Like Symptoms. Vertigo. COMPARISON STUDY: Head CT May 31, 2015. MRI of the brain July 06, 2015. CT DOSE: 1283.19 mGy.cm TECHNIQUE: Helical axial images of the head were obtained without IV contrast. Automated exposure control was utilized for the study. A dose lowering technique was utilized adhering to the principles of ALARA. FINDINGS: No acute intracranial hemorrhage, midline shift or mass effect is present. The ventricular system is unremarkable. The basal cisterns are patent. No extra-axial collections are present. There are no findings to suggest acute dural sinus thrombosis or acute territorial infarct. No significant calvarial abnormalities are present. Old deformity of the medial wall of the left orbit is incidentally noted. There is minimal ethmoid sinus mucosal thickening. IMPRESSION: No acute intracranial findings. ACT 112: Negative or not required by law. Electronically signed by: Rad Arnold M.D. 08/29/2021 11:08 AM Head CTA 08/29/21 10:03 CT angio head w con CLINICAL HISTORY: Stroke Like Symptoms TECHNIQUE: CT angiography of the head was performed following intravenous administration of iodinated contrast. Coronal and sagittal MIPS were obtained from the axial data set and were submitted for review. Automated dose lowering techniques and/or adjustment according to patient size were utilized for this examination. All measurements were calculated based on NASCET criteria. Comparison: Comparison is made to MRI brain 07/06/2015 FINDINGS: CTA Head: The anterior and posterior cerebral circulations are patent. No hemodynamically significant stenosis, aneurysm, or dissection. 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 Atherosclerotic disease is noted. IMPRESSION: No occlusion, hemodynamically significant stenosis, or dissection in the major cervical arteries. 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 Assessment of stenosis of the internal carotid arteries is based on NASCET criteria. ACT 112: Negative or not required by law. Electronically signed by: Jaime Ng M.D. 08/29/2021 11:31 AM Neck CTA 08/29/21 10:03 CT angio neck with con CLINICAL HISTORY: Stroke Like Symptoms . Vertigo COMPARISON STUDY: No previous studies for comparison. CT DOSE: TECHNIQUE: CT Angio of the neck was performed.followed by image post processing with coronal, and sagittal MIP reformats.. Stenosis assessment by NASCET criteria. Contrast Volume: Optiray 320, 120 ml FINDINGS: Vascular findings: Right common carotid artery: Patent without significant stenosis. Right internal carotid artery: Patent without significant stenosis. Right vertebral artery: There is suspicion for a short segment dissection as seen on images 330 thr[address]gh 336. There is some imaging artifact also present. Left common carotid artery: Patent without significant stenosis. Left internal carotid artery: Patent without significant stenosis. Left vertebral artery: Patent without significant stenosis. The left vertebral artery is mildly dominant when compared to the right. Nonvascular findings: The parotid and submandibular salivary glands appear normal. There is no enlarged cervical adenopathy noted. The airway appears patent. The thyroid gland appears within normal limits. The lung apices appear within normal limits. Impression: 1. Suspicion of a short segment dissection as described above with imaging artifact being less likely. These images were reviewed with Dr. Arnold who concurred with these findings. ACT 112: Negative or not required by law. Electronically signed by: Syed Blanchard M.D. 08/29/2021 11:32 AM Brain MRI 08/29/21 13:06 MR brain wo con CLINICAL HISTORY: Vertigo and dizziness. Evaluate for stroke. Previous TIA. COMPARISON STUDY: 07/06/[address] brain from 08/29/2021 TECHNIQUE: Multiplanar multisequence images of the Brain were performed without IV contrast. Diffusion weighted imaging and ADC mapping was also performed. FINDINGS: Extra-axial space: There is no evidence for a subdural hematoma, There are no extra-axial fluid collections. Ventricles and cisterns: The ventricles are normal in size and configuration. There is no evidence for midline shift or mass effect. Parenchyma: There is no evidence for an acute hemorrhage or infarct. No acute diffusion abnormalities are noted on diffusion weighted imaging or ADC mapping. There is normal zavala-white differentiation. There is mild cerebral cortical atrophy present. The sulci and gyri appear normal without effacement. The midline structures are unremarkable. The posterior fossa structures appear normal. There is no evidence for mass lesion. Osseous structures: The paranasal sinuses are well aerated. The mastoid air cells are well aerated. Soft tissues: No focal soft tissue abnormalities are identified. IMPRESSION: 1. No acute intracranial abnormalities. 2. Mild cerebral cortical atrophy. ACT 112: Negative or not required by law. Electronically signed by: Syed Blanchard M.D. 08/29/2021 2:23 PM ECG Data Attestation: I personally reviewed and interpreted this ECG as follows: Indication: + weakness Rate (beats per minute): 75 Rhythm: + normal sinus ECG Intervals/blocks: + Normal QRS, + Normal QT and + Normal NV ECG Faxon: + Normal ECG ST segments: + Normal ST segments ECG Findings: no PACs or no PVCs Comparison ECG Date: from (05/31/15) Change: the following changes noted (There are some nonspecific T wave abnormalities now present) MDM Narrative This patient is a 70-year-old male who has a history of hypertension and previous TIAs comes in after having vertigo type symptoms they have been intermittent he is asymptomatic at present and has a normal neurologic exam. His symptoms were worse with movement and better with closing his eyes. Given his history, I felt a full stroke work-up was evaluated. At this point with him being assymptomatic, and peripheral vertigo being a more likely diagnosis, he would not be a tnkase candidate. His blood work was unremarkable. His potassi um is mildly low at 3.3 but besides that he has no significant electrolyte or metabolic abnormality. EKG does not suggest acute coronary syndrome or arrhythmia and his high-sensitivity troponin was negative. His CAT scan of his head is unremarkable. He did get some more vertiginous symptoms after moving to get to the CAT scan. he was given the meclizine and is much more comfortable at rest. I did also consult Dr. Florez , who thought that he would likely be aspirin and admission but recommended that he talk to his stroke neurology. I did call and talk to Dr. Heath, who is the [facility] stroke neurology. He actually evaluated the patient through the telestroke cart and felt like he was most li racheal presented as a benign positional vertigo he however was concerned that the CT does look like dissection. Agreed and did not feel the patient needed thrombolytics or neuro intervention. He recommended we do a stat MRI with T1 fat-sat views. I discussed this with Dr. Arnold, from radiology, and the patient and ordered this. I was unremarkable no evidence of stroke. The patient did have a COVID test that came back positive. I do think he needs to be admitted/observed for his vertigo. I went back and reexamined him he has intact cranial nerves II through XII. I have consulted [facility] hospitalist to see him for these measures. His COVID test did come back positive surprisingly and he was placed on isolation. Continuous cardiac monitoring: Order was placed in the EMR for continuous cardiac monitoring. Upon my interpretation patient is noted to be in normal sinus rhythm with a rate of 65 Impression & Plan Vertigo, HTN (hypertension), Nausea, History of TIAs, COVID Discharge Plan Visit Data Chief Complaint: Vertigo Stated Complaint: DIZZINESS, NAUSEA ED Provider: Bogdan Vaughn Discharge Problem: Vertigo, HTN (hypertension), Nausea, History of TIAs, COVID Forms Stand Alone Forms: My [facility] Prescriptions Prescriptions: No Action amlodipine 10 mg tablet 10 mg PO QAM Qty: 90 RF: 3 clopidogrel [Plavix] 75 mg tablet 75 mg PO QAM Qty: 90 RF: 3 potassium chloride 20 mEq tablet extended release 20 meq PO BID Qty: 180 RF: 1 sildenafil [Viagra] 100 mg tablet 100 mg PO DAILY PRN (Reason: sexual activity) Qty: 30 RF: 1 hydrochlorothiazide 25 mg tablet 25 mg PO QAM Qty: 90 RF: 1 tadalafil 5 mg tablet 5.5 mg PO HS Qty: 90 RF: 4 cyclobenzaprine 10 mg tablet 10 mg PO TID PRN (Reason: muscle spasm) Qty: 60 RF: 2 Zyrtec 10 mg capsule 10 mg PO HS Qty: 1 RF: 0 multivitamin Tablet 1 tab PO QAM RF: 0 calcium carbonate-vitamin D3 [Calcium 500 + D] 500 mg(1,250mg) -200 unit Tablet 1 tab PO QAM RF: 0 Probiotic 3 billion cell Capsule 3,000 mmu cells PO QAM RF: 0 omega 2-qpf-wrb-fish oil [Fish Oil] 1,000 mg (120 mg-180 mg) Capsule 1 cap PO QAM RF: 0 cholecalciferol (vitamin D3) 100 mcg (4,000 unit) capsule 100 mcg PO QAM RF: 0 Referrals Referrals: Bogdan Moody DO [Primary Care Provider] - Discharge Problem: HTN (hypertension) Qualifiers: Hypertension type: unspecified Qualified Code(s): I10 - Essential (primary) hypertension
[2021-08-29 10:26] LABS: Albumin Globulin Ratio 1.3 (0.9-2); BUN Creatinine Ratio 10.3 (10-20); Bilirubin,Total 0.7 mg/dl (0.2-1.0); Calcium 9.2 mg/dl (8.5-10.1); Creatinine Clr Calc Pharmacy 62.4 ml/min; Globulin 3.2 gm/dl (2.5-4.0); Potassium 3.3 mmol/L (3.5-5.1); Total Protein 7.2 gm/dl (6.0-8.3)
[2021-08-29 10:39] LABS: Partial Thromboplastin Ratio 0.9; Partial Thromboplastin Time 23.6 Seconds (21.0-31.0); Prothrombin Time 10.9 Seconds (9.0-12.0)
[2021-08-29] MEDS ORDERED: MECLIZINE 12.5 MG TAB PO STA (10:42)
[2021-08-29 10:44] LABS: Magnesium 1.9 mg/dl (1.7-2.4)
[2021-08-29 10:47] LABS: Troponin I High Sensitivity 3.7 pg/ml (0-20)
[2021-08-29] MEDS ORDERED: OPTIRAY 320 125ml IV ONE (11:02)
--- NOTE | 2021-08-29 11:10 | CT Scan Report ---
CT OF THE HEAD WITHOUT CONTRAST CLINICAL HISTORY: Stroke Like Symptoms. Vertigo. COMPARISON STUDY: Head CT May 31, 2015. MRI of the brain July 06, 2015. CT DOSE: 1283.19 mGy.cm TECHNIQUE: Helical axial images of the head were obtained without IV contrast. Automated exposure con trol was utilized for the study. A dose lowering technique was utilized adhering to the principles o f ALARA. FINDINGS: No acute intracranial hemorrhage, midline shift or mass effect is present. The ventricular system is unremarkable. The basal cisterns are patent. No extra-axial collections are present. There are no findings to suggest acute dural sinus thrombosis or acute territorial infarct. No significant calvarial abnormalities are present. Old deformity of the medial wall of the left orbit is incidental ly noted. There is minimal ethmoid sinus mucosal thickening. IMPRESSION: No acute intracranial findings. ACT 112: Negative or not required by law. Electronically signed by: Rad Arnold M.D. 08/29/2021 11:08 AM
--- NOTE | 2021-08-29 11:33 | CT Scan Report ---
CT angio head w con CLINICAL HISTORY: Stroke Like Symptoms TECHNIQUE: CT angiography of the head was performed following intravenous administration of iodinated contrast. Coronal and sagittal MIPS were obtained from the axial data set and were submitted for rev iew. Automated dose lowering techniques and/or adjustment according to patient size were utilized fo r this examination. All measurements were calculated based on NASCET criteria. Comparison: Comparison is made to MRI brain 07/06/2015 FINDINGS: CTA Head: The anterior and posterior cerebral circulations are patent. No hemodynamically significan t stenosis, aneurysm, or dissection. 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 Atherosclerotic disease is noted. IMPRESSION: No occlusion, hemodynamically significant stenosis, or dissection in the major cervical arteries. Inc identally noted, there is suggestion of an AVM in the left MCA territory. Assessment of stenosis of the internal carotid arteries is based on NASCET criteria. ACT 112: Negative or not required by law. Electronically signed by: Jaime Ng M.D. 08/29/2021 11:31 AM
--- NOTE | 2021-08-29 11:33 | CT Scan Report ---
CT angio neck with con CLINICAL HISTORY: Stroke Like Symptoms . Vertigo COMPARISON STUDY: No previous studies for comparison. CT DOSE: TECHNIQUE: CT Angio of the neck was performed.followed by image post processing with coronal, and sa gittal MIP reformats.. Stenosis assessment by NASCET criteria. Contrast Volume: Optiray 320, 120 ml FINDINGS: Vascular findings: Right common carotid artery: Patent without significant stenosis. Right internal carotid artery: Patent without significant stenosis. Right vertebral artery: There is suspicion for a short segment dissection as seen on images 330 thr[address] gh 336. There is some imaging artifact also present. Left common carotid artery: Patent without significant stenosis. Left internal carotid artery: Patent without significant stenosis. Left vertebral artery: Patent without significant stenosis. The left vertebral artery is mildly domin ant when compared to the right. Nonvascular findings: The parotid and submandibular salivary glands appear normal. There is no enlarged cervical adenopathy noted. The airway appears patent. The thyroid gland appears within normal limits. The lung apices ap pear within normal limits. Impression: 1. Suspicion of a short segment dissection as described above with imaging artifact being less likely . These images were reviewed with Dr. Arnold who concurred with these findings. ACT 112: Negative or not required by law. Electronically signed by: Syed Blanchard M.D. 08/29/2021 11:32 AM
[2021-08-29] MEDS ORDERED: SODIUM CHLORIDE 0.9% 1000ML 500 ML IV ONE (12:01)
[2021-08-29] MEDS ORDERED: ONDANSETRON INJ 2 MG/ML 2 ML VIAL IV STA (12:01)
--- NOTE | 2021-08-29 14:25 | Magnetic Resonance Report ---
MR brain wo con CLINICAL HISTORY: Vertigo and dizziness. Evaluate for stroke. Previous TIA. COMPARISON STUDY: 07/06/[address] brain from 08/29/2021 TECHNIQUE: Multiplanar multisequence images of the Brain were performed without IV contrast. Diffusi on weighted imaging and ADC mapping was also performed. FINDINGS: Extra-axial space: There is no evidence for a subdural hematoma, There are no extra-axial fluid johnny ections. Ventricles and cisterns: The ventricles are normal in size and configuration. There is no evidence f or midline shift or mass effect. Parenchyma: There is no evidence for an acute hemorrhage or infarct. No acute diffusion abnormalities are noted on diffusion weighted imaging or ADC mapping. There is normal zavala-white differentiation. There is mild cerebral cortical atrophy present. The sulci and gyri appear normal without effacement . The midline structures are unremarkable. The posterior fossa structures appear normal. There is no evidence for mass lesion. Osseous structures: The paranasal sinuses are well aerated. The mastoid air cells are well aerated. Soft tissues: No focal soft tissue abnormalities are identified. IMPRESSION: 1. No acute intracranial abnormalities. 2. Mild cerebral cortical atrophy. ACT 112: Negative or not required by law. Electronically signed by: Syed Blanchard M.D. 08/29/2021 2:23 PM
--- NOTE | 2021-08-29 15:39 | History & Physical Report ---
Date of Service August 29, 2021 Assessment & Plan (1) Vertigo: Plan: - Acute onset this AM, dizziness triggered by head movements, with associated nausea, vomiting in the setting of COVID-19 diagnosed in ED today. - Given history of TIAs, he had extensive imaging in ED for CVA, which has been ruled out given unremarkable imaging in the setting of continuous symptoms. - Suspect this is vestibular neuritis vs BPPV. - Will have zofran, meclizine ordered prn with PT to eval in morning. - Will start on solumedrol 40 mg IV TID as evidence shows starting steroids within first 24 hours of onset improves care home outcome. - Will continue Q4h neurochecks as a precaution. For AVM-defer to neurology to see if he needs further follow-up on this with either imaging or neurosurgery as an outpatient (2) Hypokalemia: Plan: - 3.3 in ED, replete and recheck in AM. (3) COVID: Plan: - Asymptomatic, nough cough/congestion/fever/chills/myalgias/loss of taste or smell. He is vaccinated and boosted, was actually scheduled to receive a second booster today. No known positive COVID contacts. - SpO2 > 95% on RA, not requiring any supplemental oxygen. - Although he is asymptomatic/we do not know how long he has had COVID, I have offered him remdesivir, he will think about whether he would want this treatment. - Isolation precautions. (4) HTN (hypertension): Plan: - Continue HCTZ, amlodipine. (5) Benign localized prostatic hyperplasia with lower urinary tract symptoms (LUTS): Plan: - Continue tadalafil 5mg HS. (6) Lumbar spinal stenosis: Plan: - Sees PT, gets TESFAYE with dayton Evans done in May. Plan: - Obs med/tele. - SCDs, Lovenox for VTE ppx. - Full Code. History of Present Illness Chief Complaint: dizziness since this morning Primary Care Provider: Bogdan Moody DO Gulshan Lerner is a 70 y/o male with past medical history significant for hypertension, TIAs, BPH, and lumbar spinal stenosis who presents today with dizziness. He had previously been feeling well until this morning when he woke up around 6:30 AM and felt dizzy. Describes sensation as if the room was spinning around him and he had difficulty ambulating. This temporarily resolved, however later on this morning he attempted physical therapy and the sensation came back. He has had ongoing nausea with several episodes of emesis since then, occurring both at home and here in the ED. He notices that movement of his head triggers this. Given his history of TIAs, did undergo imaging for CVA work-up, head CT unremarkable, head CTA suggested AVM in left MCA territory, otherwise no acute findings. Neck CTA was suspicious for a short segment dissection seen on images 330 through 336. Follow up MRI ordered did not show any acute abnormalities. In ED, he is hypertensive, otherwise VS wnl and stable. Labs significant for leukopenia w/ WBC 3.06, K 3.3, COVID positive, all other labs unremarkable. Allergies Allergy/AdvReac Type Severity Reaction Status Date / Time silodosin [From Rapaflo] AdvReac Intermediate Insomnia Verified 08/15/21 08:40 tamsulosin AdvReac Intermediate Hypotension Verified 08/15/21 08:40 losartan AdvReac Mild Cough Verified 08/15/21 08:40 olmesartan [From Benicar] AdvReac Mild cough Verified 08/15/21 08:40 Home Medications Medication Instructions Recorded Confirmed Type calcium carbonate 500 mg-vitamin 1 tab PO QAM 12/14/17 08/15/21 History D3 5 mcg (200 unit) tablet (Calcium 500 + D) lactobacillus combination no.4 3 3,000 mmu cells PO QAM 12/14/17 08/15/21 History billion cell capsule (Probiotic) multivitamin 1 tab PO QAM 12/14/17 08/15/21 History omega 5-dkg-pth-fish oil 1,000 mg 1 cap PO QAM 11/17/18 08/15/21 History (120 mg-180 mg) capsule (Fish Oil) cetirizine 10 mg capsule (Zyrtec) 10 mg PO HS #1 cap 09/09/19 08/15/21 Rx cyclobenzaprine 10 mg tablet 10 mg PO TID PRN #60 tab 09/09/19 08/15/21 Rx cholecalciferol (vitamin D3) 100 100 mcg PO QAM 01/14/20 08/15/21 History mcg (4,000 unit) capsule tadalafil 5 mg tablet 5.5 mg PO HS #90 tab 09/17/20 08/15/21 Rx amlodipine 10 mg tablet 10 mg PO QAM #90 tab 10/08/20 08/15/21 Rx clopidogrel 75 mg tablet (Plavix) 75 mg PO QAM #90 tab 10/22/20 08/15/21 Rx potassium chloride 20 mEq 20 meq PO BID #180 tab 03/11/21 08/15/21 Rx tablet,extended release sildenafil 100 mg tablet (Viagra) 100 mg PO DAILY PRN #30 tab 04/25/21 08/15/21 Rx hydrochlorothiazide 25 mg tablet 25 mg PO QAM #90 tab 06/12/21 08/15/21 Rx Past Med/Surg History Medical History Asthma HX OF > NO MEDICATIONS OR PROBLEMS CURRENTLY BPH (benign prostatic hyperplasia) Chronic back pain Chronic right sacroiliac joint pain Cough due to angiotensin-converting enzyme inhibitor switched to amlodipine due to this Hypertension Kidney stones HISTORY OF Lumbar spinal stenosis Osteoarthritis Right lumbar radiculopathy Transient ischemic attack (TIA) X3. LAST EPISODE JUNE 2020. NO RESIDUALS. TAKES PLAVIX Surgical History H/O prostate biopsy x2 > benign History of bronchoscopy AT AGE 17 History of colonoscopy 04/2012 repeat 10 yrs History of esophagogastroduodenoscopy (EGD) History of tooth extraction S/P epidural steroid injection Status post excision of lipoma HX > back Family History Sister Family history of diabetes mellitus Breast cancer Unknown Bipolar disorder Bleeding disorder Mother , age 93, after hip fracture and surgery Deafness Father Tuberculosis Prostate cancer Lung cancer Hypertension Family history of diabetes mellitus Sister Lung cancer Hypertension Denies family history of Ovarian cancer Myocardial infarction Colorectal cancer Social History Smoking Status: Never smoker Tobacco Type: Cigarettes Age Started Using Tobacco: 14; Age Quit Using Tobacco: 28; Cigarettes Per Day: 3 cigarettes a day; Second Hand Exposure: No; Hx Alcohol Use: Yes Alcohol type: wine Alcohol Intake Frequency: Monthly or Less Hx Substance Use: No Preferred Language: Polish Communication Ability: Effective Visual Impairment: Limited Hearing Ability: Normal Treasury Director Required: No Beliefs That Will Affect Care: None marital status: Current Living Situation: Spouse current occupational status: retired current occupation: dentist How many Children do You have: 2 Feels Safe at Home: Yes Childhood Exposure to Second-Hand Smoke: Yes caffeine: Yes (coffee daily ) Dental Care, Regularly: Yes Physical Activity Frequency: 5-6 Times per Week Seatbelt Use: always Sunscreen Use: Yes Assistive Devices: Glasses Review of Systems Review of Systems: Constitutional: dizziness since this AM; No fever/chills, weakness, fatigue, myalgias, anorexia, night sweats Eyes: No diplopia, no worsening or blurred vision ENT: normal hearing, no trouble swallowing Respiratory: No cough, sputum, dyspnea at rest or on exertion Cardiovascular: No chest pain, tightness or palpitations Abdomen: nausea, vomiting since this AM; No pain, diarrhea or constipation : Denies dysuria, hematuria, increased urgency/frequency, urinary retention Musculoskeletal: No joint pain, calf pain, swelling Neurologic: difficulty ambulating secondary to dizziness; No weakness, numbness/tingling Psychiatric: No anxiety or depression Skin: No rash or itch Physical Exam Physical Exam: General: awake, alert, no apparent distress Head: Normocephalic, atraumatic ENT: PERRL, EOMI, no pharyngeal exudate, mucous membranes moist Chest: Clear to auscultation, on room air, no adventitious breath sounds Cardiac: Regular rate and rhythm, no murmur, no JVD, normal peripheral pulses, good capillary refill Abdominal: NABS x 4 quadrants, soft, nontender to palpation, no rebound, guarding or tenderness Extremities: Normal inspection, no peripheral edema or erythema, calfs nontender to palpation Psych: Normal mood and affect Neuro: AAO x 3, strength intact bilaterally and rated 5/5, no motor deficits, speech is clear, no peripheral sensory deficits Skin: no rash or erythema Results & Data Results & Data ([facility]) Vital Signs (Past 12 Hours) Vital Signs Temp Pulse Resp BP Pulse Ox 08/29/21 15:00 143/86 H 08/29/21 14:58 68 19 151/93 H 98 08/29/21 13:30 64 15 133/82 98 08/29/21 13:00 66 19 141/90 H 99 08/29/21 12:30 77 22 143/90 H 99 08/29/21 12:00 66 21 144/80 H 98 08/29/21 11:30 69 19 156/99 H 99 08/29/21 11:06 70 19 147/99 H 99 08/29/21 10:30 63 18 139/88 99 08/29/21 10:00 72 19 161/95 H 99 08/29/21 09:49 99 08/29/21 09:42 36.9 C 69 19 165/92 H 100 Laboratory Results Abnormal lab results 08/29/21 08/29/21 08/29/21 Range/Units 09:50 09:50 13:35 WBC 3.06 L (4.8-10.8) K/uL Hct 41.4 L (42-52) % MPV 11.2 H (7.4-10.4) fL Lymph # (Auto) 1.06 L (1.2-3.4) K/uL Potassium 3.3 L (3.5-5.1) mmol/L Glucose 105 H (70-99(Fasting)) mg/dl SARS-CoV-2, RNA, NAAT POSITIVE A* (NEGATIVE) Diagnostic Findings Head CT 08/29/21 10:03 CT OF THE HEAD WITHOUT CONTRAST CLINICAL HISTORY: Stroke Like Symptoms. Vertigo. COMPARISON STUDY: Head CT May 31, 2015. MRI of the brain July 06, 2015. CT DOSE: 1283.19 mGy.cm TECHNIQUE: Helical axial images of the head were obtained without IV contrast. Automated exposure control was utilized for the study. A dose lowering technique was utilized adhering to the principles of ALARA. FINDINGS: No acute intracranial hemorrhage, midline shift or mass effect is present. The ventricular system is unremarkable. The basal cisterns are patent. No extra-axial collections are present. There are no findings to suggest acute dural sinus thrombosis or acute territorial infarct. No significant calvarial abnormalities are present. Old deformity of the medial wall of the left orbit is incidentally noted. There is minimal ethmoid sinus mucosal thickening. IMPRESSION: No acute intracranial findings. ACT 112: Negative or not required by law. Electronically signed by: Rad Arnold M.D. 08/29/2021 11:08 AM Head CTA 08/29/21 10:03 CT angio head w con CLINICAL HISTORY: Stroke Like Symptoms TECHNIQUE: CT angiography of the head was performed following intravenous administration of iodinated contrast. Coronal and sagittal MIPS were obtained from the axial data set and were submitted for review. Automated dose lowering techniques and/or adjustment according to patient size were utilized for this examination. All measurements were calculated based on NASCET criteria. Comparison: Comparison is made to MRI brain 07/06/2015 FINDINGS: CTA Head: The anterior and posterior cerebral circulations are patent. No hemodynamically significant stenosis, aneurysm, or dissection. 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 Atherosclerotic disease is noted. IMPRESSION: No occlusion, hemodynamically significant stenosis, or dissection in the major cervical arteries. 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 Assessment of stenosis of the internal carotid arteries is based on NASCET criteria. ACT 112: Negative or not required by law. Electronically signed by: Jaime Ng M.D. 08/29/2021 11:31 AM Neck CTA 08/29/21 10:03 CT angio neck with con CLINICAL HISTORY: Stroke Like Symptoms . Vertigo COMPARISON STUDY: No previous studies for comparison. CT DOSE: TECHNIQUE: CT Angio of the neck was performed.followed by image post processing with coronal, and sagittal MIP reformats.. Stenosis assessment by NASCET criteria. Contrast Volume: Optiray 320, 120 ml FINDINGS: Vascular findings: Right common carotid artery: Patent without significant stenosis. Right internal carotid artery: Patent without significant stenosis. Right vertebral artery: There is suspicion for a short segment dissection as seen on images 330 thr[address]gh 336. There is some imaging artifact also present. Left common carotid artery: Patent without significant stenosis. Left internal carotid artery: Patent without significant stenosis. Left vertebral artery: Patent without significant stenosis. The left vertebral artery is mildly dominant when compared to the right. Nonvascular findings: The parotid and submandibular salivary glands appear normal. There is no enlarged cervical adenopathy noted. The airway appears patent. The thyroid gland appears within normal limits. The lung apices appear within normal limits. Impression: 1. Suspicion of a short segment dissection as described above with imaging artifact being less likely. These images were reviewed with Dr. Arnold who concurred with these findings. ACT 112: Negative or not required by law. Electronically signed by: Syed Blanchard M.D. 08/29/2021 11:32 AM Brain MRI 08/29/21 13:06 MR brain wo con CLINICAL HISTORY: Vertigo and dizziness. Evaluate for stroke. Previous TIA. COMPARISON STUDY: 07/06/[address] brain from 08/29/2021 TECHNIQUE: Multiplanar multisequence images of the Brain were performed without IV contrast. Diffusion weighted imaging and ADC mapping was also performed. FINDINGS: Extra-axial space: There is no evidence for a subdural hematoma, There are no extra-axial fluid collections. Ventricles and cisterns: The ventricles are normal in size and configuration. There is no evidence for midline shift or mass effect. Parenchyma: There is no evidence for an acute hemorrhage or infarct. No acute diffusion abnormalities are noted on diffusion weighted imaging or ADC mapping. There is normal zavala-white differentiation. There is mild cerebral cortical atrophy present. The sulci and gyri appear normal without effacement. The midline structures are unremarkable. The posterior fossa structures appear normal. There is no evidence for mass lesion. Osseous structures: The paranasal sinuses are well aerated. The mastoid air cells are well aerated. Soft tissues: No focal soft tissue abnormalities are identified. IMPRESSION: 1. No acute intracranial abnormalities. 2. Mild cerebral cortical atrophy. ACT 112: Negative or not required by law. Electronically signed by: Seyd Blanchard M.D. 08/29/2021 2:23 PM ECG Additional Comments: Normal sinus rhythm Left axis deviation Nonspecific T wave abnormality Prolonged QT Abnormal ECG When compared with ECG of 31-MAY-2015 22:39, Premature atrial complexes are no longer Present. Code Status & VTE Plan Code Status Full Code. Supervising Physician Co-Signing Physician Notes PA Supervision Note: I personally saw and examined the patient. I verified all latif points and agree with KHANH Pierson with the following exceptions and/or additions: S-this patient is a 70-year-old male with history of HTN, BPH, TIA, here with vertigo that came on suddenly and was associated with nausea vomiting. Found to be COVID-positive in the ER but no hypoxia, no sore throat or URI symptoms, no cough, no chest pains., Work-up for stroke in the ER was negative to include negative brain MRI, CT angiogram head neck. 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 History and ROS reviewed as above O- Vitals reviewed Gen: [AAOx3, NAD] HEENT: [anicteric sclerae, EOMI, PERRLA, oropharynx clear, TMs normal, EAC normal bilaterally] CV: [RRR no mgr nl S1S2] Pulm: [CTAB no wcr] Abd: [+BS soft NT ND no masses or hernias] Ext: No edema, 2+ DP pulses Skin: No rashes, warm/dry Neuro: Cranial nerves II through XII intact, no nystagmus, full strength throughout Labs, rads, ECG reviewed A/V-63-gczz-old male here with COVID-19 and likely vestibular neuronitis Patient now agreeable after thinking it over to starting Remdesivir -his last negative test was 1 week ago so he is within the 7 day optimal window Start IV Solu-Medrol, Continue meclizine as needed Appreciate neurology consultation For AVM-defer to neurology to see if he needs further follow-up on this with either imaging or neurosurgery as an outpatient PG Care Time/CCT Total # of Minutes Spent Total Time Spent with Patient: Total time spent is greater than 50% in coordination of care (as documented) at patient's floor/unit and/or counseling patient: Coding Level of Care Code INT OBSERVATION CARE 70M LVL 3 Diagnoses Vertigo R42 COVID U07.1 HTN (hypertension) I10 Hypertension type: unspecified Hypokalemia E87.6 Benign localized prostatic hyperplasia with lower urinary tract symptoms (LUTS) N40.1 Lumbar spinal stenosis M48.061 Neurogenic claudication status: without neurogenic claudication (1) Lumbar spinal stenosis Neurogenic claudication status: without neurogenic claudication Qualified Code(s): M48.061 - Spinal stenosis, lumbar region without neurogenic claudication (2) HTN (hypertension) Hypertension type: unspecified Qualified Code(s): I10 - Essential (primary) hypertension
[2021-08-29] MEDS ORDERED: POTASSIUM CHLORIDE CRTAB 20 MEQ TABCR PO STA (16:32)
[2021-08-29] MEDS ORDERED: CYCLOBENZAPRINE HCL 10 MG TAB PO PRN (19:09)
[2021-08-29] MEDS ORDERED: POLYETHYLENE (MIRALAX) 17 GM PACK PO PRN (19:09)
[2021-08-29] MEDS ORDERED: ACETAMINOPHEN 325 MG TAB PO PRN (19:09)
[2021-08-29] MEDS ORDERED: ONDANSETRON INJ 2 MG/ML 2 ML VIAL IV PRN (19:09)
[2021-08-29] MEDS ORDERED: MECLIZINE HCL 25 MG TAB PO PRN (19:09)
[2021-08-29] MEDS: POTASSIUM CHLORIDE CRTAB 20 MEQ TABCR PO SCH (20:28)
[2021-08-29] MEDS ORDERED: CETIRIZINE HCL 10 MG TABLET PO SCH (21:00)
[2021-08-29] MEDS ORDERED: methylPREDNISolone 40 MG in SYRINGE 0 ML IV SCH (21:00)
[2021-08-29] MEDS ORDERED: ENOXAPARIN INJ 40 MG/0.4 ML SYR SQ SCH (21:00)
[2021-08-29] MEDS: methylPREDNISolone 40 MG in SYRINGE 0 ML IV SCH (21:27)
[2021-08-29] MEDS ORDERED: REMDESIVIR 200 MG in SODIUM CHLORIDE 0.9% 210 ML IV ONE (22:00)
--- NOTE | 2021-08-30 07:38 | Electrocardiogram Report ---
Test Reason : Blood Pressure : / mmHG Vent. Rate : 075 BPM Atrial Rate : 075 BPM P-R Int : 190 ms QRS Dur : 100 ms QT Int : 414 ms P-R-T Axes : 067 -33 029 degrees QTc Int : 462 ms Normal sinus rhythm Left axis deviation Nonspecific T wave abnormality Abnormal ECG When compared with ECG of 31-MAY-2015 22:39, Premature atrial complexes are no longer Present Confirmed by Clayton Witt ([id number]) on 08/30/2021 7:38:24 AM Referred By: REFERRED SELF Confirmed By:Clayton Witt
[2021-08-30 07:57] LABS: Basophils # (auto) 0.01 K/uL (0-0.2); Basophils % (auto) 0.2 %; Hematocrit (blood only) 41.5 % (42-52); Hemoglobin 13.9 g/dL (14.0-18.0); Lymphocytes # (auto) 0.79 K/uL (1.2-3.4); Lymphocytes % (auto) 14.5 %; Mean Corpuscular Hgb Conc 33.5 g/dL (32-36); Mean Corpuscular Volume 86.6 fL (80-100); Mean Platelet Volume 11.5 fL (7.4-10.4); Monocytes # (auto) 0.13 K/uL (0.11-0.59); Monocytes % (auto) 2.4 %; Neutrophils # (auto) 4.53 K/uL (1.4-6.5); Neutrophils % (auto) 82.9 %; Platelet Count 187 K/uL (130-400); RDW Coefficient of Variation 14.2 % (11.5-14.5); RDW Standard Deviation 44.7 fL (36.4-46.3); Red Blood Count 4.79 M/uL (4.7-6.1); White Blood Count 5.46 K/uL (4.8-10.8)
[2021-08-30 08:18] LABS: Alanine Aminotransferase 23 U/L (7-52); Albumin Globulin Ratio 1.2 (0.9-2); Albumin Level 3.6 gm/dl (3.4-5.0); Alkaline Phosphatase 57 U/L (34-104); Anion Gap 6 (3-11); Aspartate Aminotransferase 21 U/L (13-39); BUN Creatinine Ratio 12.9 (10-20); Bilirubin,Total 0.5 mg/dl (0.2-1.0); Blood Urea Nitrogen 15 mg/dl (6-23); C Reactive Protein < 0.50 mg/dl (0-0.5); Calcium 8.7 mg/dl (8.5-10.1); Carbon Dioxide 24 mmol/L (21-32); Chloride 108 mmol/L (98-107); Creatinine Clr Calc Pharmacy 57.6 ml/min; Est GFR (African American) 72.5 ml/min; Est GFR (Non-African American) 62.6 ml/min; Globulin 2.9 gm/dl (2.5-4.0); Glucose 121 mg/dl (70-99(Fasting)); Potassium 3.9 mmol/L (3.5-5.1); Sodium 138 mmol/L (136-145); Total Protein 6.5 gm/dl (6.0-8.3)
[2021-08-30] MEDS: methylPREDNISolone 40 MG in SYRINGE 0 ML IV SCH ×2 (08:20→12:32)
[2021-08-30] MEDS: POTASSIUM CHLORIDE CRTAB 20 MEQ TABCR PO SCH (08:20)
--- NOTE | 2021-08-30 08:46 | Neurology Consultation ---
Date of Consultation August 30, 2021 Assessment & Plan (1) Vertigo: (2) Vertebral artery dissection: (3) History of TIAs: (4) Lumbar spinal stenosis: (5) HTN (hypertension): (6) Right lumbar radiculopathy: (7) COVID: Patient had acute onset of positional vertigo August 29 with some rel atively violent nausea and vomiting associated. He is Covid-19 positive but otherwise asymptomatic. Neurologic examination is unremarkable with no focal neurologic findings, meningeal signs, encephalopathy. MRI of the brain showed no acute findings or inner ear problems. Clinically, I suspect this issue is positional vertigo from a labyrinthine problem, but a vestibular neuritis cannot be excluded. Since he tends to fall to the right I suspect it is the right inner ear. he has no hearing loss or unilateral tinnitus. He does have chronic bilateral tinnitus ( suggesting chronic inner ear issues). There is no evidence for stroke. A viral illness (such as Covid-19 ) could trigger an inner ear issue like this. The patient has a history of lumbar spinal stenosis with chronic low back pain and right lumbar radiculopathy. This is stable. The patient has a history of multiple TIAs in the past. MRI does not show much in the way of old small-vessel ischemic disease A short segment right vertebral dissection was noted on CT angiography of the neck. This is likely secondary ( from violent nausea and vomiting? ) And has not caused his clinical picture. Recommendations: 1. use meclizine as needed for vertigo and ondansetron as needed for nausea. 2. change steroids to a Medrol Dosepak 3. I see no need for additional neurologic testing. 4. Control blood pressure as you are doing 5. The treatment for this type of short segment vertebral artery dissection is typically antiplatelet medication ( which he is already on). It would be reasonable to initiate 81 milligram aspirin to take with the clopidogrel together daily for 3 weeks and then go back to clopidogrel alone. There is no indication for anticoagulation. 6. follow-up in Neurology Clinic in 1-2 weeks ( with PA ). Overall, I spent a total of 100 minutes with this case including review of records, review of MRI films, direct evaluation the patient at bedside, and discussion of the case with the patient and RN at bedside, and Dr. Ferrell including differential diagnosis and treatment options. History of Present Illness Reason for Consultation: It is a 70-year-old, who I was asked to see at the request of TOD Mercado, for neurologic consultation regarding acute vertigo and vertebral dissection. Requesting Physician: Gissel Pierson PA-C Attending Physician: Marquez Ferrell History of Present Illness This patient has a history of hypertension and multiple TIAs. These TIAs occurred prominently in 2015 and again in June of 2020 with some smaller episodes and other times. Each time he had numbness and tingling on 1 side of his body or face which was short lived. MRIs never did show strokes. At 1 point he was on both aspirin and Plavix but currently he has been on clopidogrel 75 milligrams daily for several years. Patient has chronic lumbar spine pain secondary to spinal stenosis from discussion. He has had radicular symptoms ( right L4 ) and is getting epidural steroids by Dr. Butler, with success. He also has cervical spine. Patient does physical therapy exercises at home and has been fairly stable. The patient has chronic bilateral tinnitus for the last 2 years. The right-side is the same as the Left. He does not have significant hearing loss or ear pain. Patient woke at 06:00 August 29 with some dizziness /vertigo of an acute, intense nature lasting seconds. The 2nd episode occurred while he was in bed after moving. He then went back to sleep for another hour and got participating in his morning routine without any difficulty. Around 0900 while doing physical therapy exercises as usual he had the sudden onset severe vertigo /spinning which was so intense he ended up having nausea vomiting up to 6 times. [place] as if he was falling to the right. he did not have any ear pain or increased tinnitus. He did not have any numbness or weakness in the arms and legs, speech or mentation problems, or vision issues. Balance was heart because of the vertigo. Any movement made it worse. He arrived to the emergency room August 29 at 0942, with a temperature of 36.9, pulse 69 regular, blood pressure 165/92, and O2 saturation 100 percent. Neurologic examination was nonfocal but he did have episodes of vertigo with movement and nausea/vomiting. CBC and Chem profile were unremarkable. Patient was Covid-19 positive and was asymptomatic for other symptoms. CT scan of the head was unremarkable. CT angiography of the head was unremarkable. CT angiography of the neck revealed a short-segment lesion in the right vertebr al artery consistent with dissection. The patient had a tele health visit with Jeanne valentin who had nothing further or additional the offer and felt that this was an inner ear problem. MRI of the brain showed no acute stroke and minimal old small vessel ischemic disease. There was some mild generalized atrophy. I reviewed these films. This morning the patient is markedly better and does not have any vertigo with head movement. Allergies Allergy/AdvReac Type Severity Reaction Status Date / Time silodosin [From Rapaflo] AdvReac Intermediate Insomnia Verified 08/15/21 08:40 tamsulosin AdvReac Intermediate Hypotension Verified 08/15/21 08:40 losartan AdvReac Mild Cough Verified 08/15/21 08:40 olmesartan [From Benicar] AdvReac Mild cough Verified 08/15/21 08:40 Home Medications Medication Instructions Recorded Confirmed Type calcium carbonate 500 mg-vitamin 1 tab PO QAM 12/14/17 08/15/21 History D3 5 mcg (200 unit) tablet (Calcium 500 + D) lactobacillus combination no.4 3 3,000 mmu cells PO QAM 12/14/17 08/15/21 History billion cell capsule (Probiotic) multivitamin 1 tab PO QAM 12/14/17 08/15/21 History omega 4-hdy-wbe-fish oil 1,000 mg 1 cap PO QAM 11/17/18 08/15/21 History (120 mg-180 mg) capsule (Fish Oil) cetirizine 10 mg capsule (Zyrtec) 10 mg PO HS #1 cap 09/09/19 08/15/21 Rx cyclobenzaprine 10 mg tablet 10 mg PO TID PRN #60 tab 09/09/19 08/15/21 Rx cholecalciferol (vitamin D3) 100 100 mcg PO QAM 01/14/20 08/15/21 History mcg (4,000 unit) capsule tadalafil 5 mg tablet 5.5 mg PO HS #90 tab 09/17/20 08/15/21 Rx amlodipine 10 mg tablet 10 mg PO QAM #90 tab 10/08/20 08/15/21 Rx clopidogrel 75 mg tablet (Plavix) 75 mg PO QAM #90 tab 10/22/20 08/15/21 Rx potassium chloride 20 mEq 20 meq PO BID #180 tab 03/11/21 08/15/21 Rx tablet,extended release sildenafil 100 mg tablet (Viagra) 100 mg PO DAILY PRN #30 tab 04/25/21 08/15/21 Rx hydrochlorothiazide 25 mg tablet 25 mg PO QAM #90 tab 06/12/21 08/15/21 Rx Patient History Medical History Asthma HX OF > NO MEDICATIONS OR PROBLEMS CURRENTLY BPH (benign prostatic hyperplasia) Chronic back pain Chronic right sacroiliac joint pain Cough due to angiotensin-converting enzyme inhibitor switched to amlodipine due to this Hypertension Kidney stones HISTORY OF Lumbar spinal stenosis Osteoarthritis Right lumbar radiculopathy Transient ischemic attack (TIA) X3. LAST EPISODE JUNE 2020. NO RESIDUALS. TAKES PLAVIX Surgical History H/O prostate biopsy x2 > benign History of bronchoscopy AT AGE 17 History of colonoscopy 04/2012 repeat 10 yrs History of esophagogastroduodenoscopy (EGD) History of tooth extraction S/P epidural steroid injection Status post excision of lipoma HX > back Family History Sister Family history of diabetes mellitus Breast cancer Unknown Bipolar disorder Bleeding disorder Mother , age 93, after hip fracture and surgery Deafness Father , age 66 of lung cancer. Tuberculosis Prostate cancer Lung cancer Hypertension Family history of diabetes mellitus Sister Lung cancer Hypertension Denies family history of Ovarian cancer Myocardial infarction Colorectal cancer Social History Smoking Status: Former smoker Tobacco Type: Cigarettes Age Started Using Tobacco: 14; Age Quit Using Tobacco: 28; Cigarettes Per Day: 3 cigarettes a day; Second Hand Exposure: No; Hx Alcohol Use: Yes Alcohol type: wine Alcohol Intake Frequency: 2-4 x/Month Hx Substance Use: No Preferred Language: Kazakh Communication Ability: Effective Visual Impairment: Limited Hearing Ability: Normal Water Taxi [employer] Required: No Beliefs That Will Affect Care: None marital status: Current Living Situation: Spouse current occupational status: retired current occupation: dentist How many Children do You have: 2 Other Information That Helps Us Care for You: No Feels Safe at Home: Yes Safety Concerns: Feels Safe At This Time Childhood Exposure to Second-Hand Smoke: Yes caffeine: Yes (coffee daily ) Dental Care, Regularly: Yes Physical Activity Frequency: 5-6 Times per Week Seatbelt Use: always Sunscreen Use: Yes Assistive Devices: Glasses Review of Systems Constitutional: no fever, no fatigue and no weakness Eyes: no diplopia, no eye pain and no worsening vision Ear, Nose, Mouth, Throat: no ear pain, no tinnitus, no hearing loss, no dizziness, no snoring, no hoarseness and no dysphagia Respiratory: no cough and no dyspnea Cardiovascular: no chest pain, no palpitations and no lightheadedness Gastrointestinal: no abdominal pain, no nausea and no vomiting Musculoskeletal: + back pain and + neck pain; no radicular pain, no joint pain and no myalgia Integumentary: no rash and no lesions Neurologic: no gait abnormality, no localized weakness, no generalized weakness, no tingling, no numbness, no tremor(s), no abnormal movements, no headache(s), no abnormal speech, no confusion and no memory loss Psychiatric: no depression, no irritability, no anxiety, no difficulty concentrating, no confusion and no hallucinations Endocrine: no fatigue and no flushing Hematologic / Lymphatic: no easy bleeding and no easy bruising Allergy / Immunological: no urticaria and no problem reported Exam (Neuro) Physical Exam: The patient is left-handed. The patient is awake, alert, and attentive. Speech is normal without any aphasia or dysarthria. The patient can name objects, repeat phrases, and has normal spontaneous speech. Mentation and thought processes are intact, with orientation to person, place and time, and normal fund of knowledge. Attention and concentration are normal. Mood and affect are normal and appropriate. General appearance and grooming are normal. Short and long-term memory are intact. Pupils are 4 mm bilaterally and reactive to light. Extraocular eye muscles are intact without nystagmus. Visual acuity and visual parr seem normal grossly to confrontation. There are no deficits to sensation in the face in all 3 distributions of the fifth cranial nerve bilaterally. Corneal reflexes are positive bilaterally. Facial strength and symmetry was normal bilaterally. Hearing seems normal bilaterally. Palate moves well without asymmetry. There is normal sternocleidomastoid and trapezius (shoulder shrug) strength bilaterally. Tongue is midline with good strength bilaterally. Neck has a full range of motion without discomfort. There are no cervical bruits bilaterally. There are no cranial or ocular bruits. Heart is without murmur. There is a regular rhythm and rate. Cervical, thoracic, and lumbar spine are nontender to palpation. Gait is narrow based, with good arm swing, turns, and stance. With outstretched arms there is no drift. There are no resting, postural, or action tremors. There is no ataxia with finger to nose testing. There is good facility in the hands. No other abnormal involuntary movements are noted. Motor strength is 5/5 diffusely in the arms bilaterally including deltoids, biceps, triceps, brachioradialis, wrist flexors and extensors, [employer] w[employer] consultant, and intrin sic hand muscles. Motor strength is 5/5 diffusely in the legs bilaterally including hip flexors, quadriceps, hamstrings, gastrocnemius, tibialis anterior, tibialis posterior, and Peroneii muscles. Toe extensors are normal and there is good bulk in the extensor digitorum brevis muscles bilaterally. The limbs have good tone without rigidity or spasticity. There is no atrophy noted in the muscles. Muscle bulk is normal, there is no tenderness to palpation, no myotonia to percussion, and no fasciculations seen. Sensory examination is intact to touch and pin throughout all 4 limbs diffusely. Reflexes are 1/4 in the biceps, triceps, brachioradialis, quadriceps, and Achilles tendons bilaterally. There is no clonus bilaterally. Toes are downgoing with plantar stimulation bilaterally. Peripheral pulses are present and of normal quality distally in all 4 limbs. There is no peripheral edema noted in the limbs. Results & Data ([facility]) Vital Signs (Past 12 Hours) Vital Signs Temp Pulse Pulse Pulse Resp BP Pulse Ox 08/30/21 07:22 69 08/30/21 06:03 36.7 C 68 16 124/75 96 08/30/21 04:19 64 08/30/21 03:25 36.9 C 69 18 123/74 99 08/29/21 23:00 36.7 C 67 18 157/81 H 99 08/29/21 20:26 60 20 140/81 98 PG Care Time/CCT Total # of Minutes Spent Total Time Spent with Patient: Total time spent is greater than 50% in coordination of care (as documented) at patient's floor/unit and/or counseling patient: Coding Level of Care Code 78778 Office/Outpt Visit, Est Diagnoses Vertigo R42 HTN (hypertension) I10 Hypertension type: unspecified History of TIAs Z86.73 Lumbar spinal stenosis M48.061 Neurogenic claudication status: without neurogenic claudication Right lumbar radiculopathy M54.16 COVID U07.1 Vertebral artery dissection I77.74 Time Spent (min) 100 Comment At modifiers as able (1) HTN (hypertension) Hypertension type: unspecified Qualified Code(s): I10 - Essential (primary) hypertension (2) Lumbar spinal stenosis Neurogenic claudication status: without neurogenic claudication Qualified Code(s): M48.061 - Spinal stenosis, lumbar region without neurogenic claudication
[2021-08-30] MEDS ORDERED: hydroCHLOROthiazide 25 MG TAB PO SCH (09:00)
[2021-08-30] MEDS ORDERED: CHOLECALCIFEROL 1,000 UNITS 25 MCG TAB PO SCH (09:00)
[2021-08-30] MEDS ORDERED: amLODIPine BESYLATE 5 MG TAB PO SCH (09:00)
[2021-08-30] MEDS ORDERED: CLOPIDOGREL BISULFATE 75 MG TAB PO SCH (09:00)
[2021-08-30] MEDS ORDERED: CALCIUM 600MG + VIT D 400 IU TAB PO SCH (09:00)
[2021-08-30] MEDS: MECLIZINE 12.5 MG TAB PO SCH ×2 (12:32→12:55)
--- NOTE | 2021-08-30 16:33 | Discharge Summary ---
Date of Service August 30, 2021 Admission HPI Per Admitting Provider Gulshan Lerner is a 70 y/o male with past medical history significant for hypertension, TIAs, BPH, and lumbar spinal stenosis who presents today with dizziness. He had previously been feeling well until this morning when he woke up around 6:30 AM and felt dizzy. Describes sensation as if the room was spinning around him and he had difficulty ambulating. This temporarily resolved, however later on this morning he attempted physical therapy and the sensation came back. He has had ongoing nausea with several episodes of emesis since then, occurring both at home and here in the ED. He notices that movement of his head triggers this. Given his history of TIAs, did undergo imaging for CVA work-up, head CT unremarkable, head CTA suggested AVM in left MCA territory, otherwise no acute findings. Neck CTA was suspicious for a short segment dissection seen on images 330 through 336. Follow up MRI ordered did not show any acute abnormalities. In ED, he is hypertensive, otherwise VS wnl and stable. Labs significant for leukopenia w/ WBC 3.06, K 3.3, COVID positive, all other labs unremarkable. Discharge Data Allergies Allergy/AdvReac Type Severity Reaction Status Date / Time silodosin [From Rapaflo] AdvReac Intermediate Insomnia Verified 08/15/21 08:40 tamsulosin AdvReac Intermediate Hypotension Verified 08/15/21 08:40 losartan AdvReac Mild Cough Verified 08/15/21 08:40 olmesartan [From Benicar] AdvReac Mild cough Verified 08/15/21 08:40 Consultations 08/29/21 14:50 ED Decision to Admit Stat 08/29/21 19:09 Consult Neurology Routine Ordered Studies 08/29/21 10:03 CT angio head w con Stat CT angio neck with con Stat CT head/brain wo con Stat 08/29/21 13:06 MR brain wo con Stat Discharge Plan Discharge Items Patient Disposition: Home - Self-Care Reason For Visit: ACUTE VERTIGO, COVID INFECTION Discharge Diagnosis: 1. acute vertigo (likely vestibular neuritis, often caused by viral infections) - improved 2. COVID infection, likely causing #1 3. short segment of vertebral artery dissection - likely due to vomiting 4. 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 - follow-up needed Activity: As commented below Activity Comment: light activities only over the next 5-7 days Exercise/Sports: Wait until after follow-up appointment Driving/Machine Use: No driving until vertigo is resolved & you are no longer taking meclizine Non-emergency contact: Primary Care Provider and Neurologist Call non-emergency contact if: you have any medication questions and your symptoms worsen Follow-up/Referrals: She Fang PA-C [Physician Pharmacology Teacher] - (10-14 days; f/u of vertigo, possible AVM) Bogdan Moody DO [Primary Care Provider] - (1 week) Diet: Heart Healthy Addtl Attending Provider Instructions: Dr Lerner, You were hospitalized for nausea, vomiting, and acute vertigo. Fortunately your symptoms responded very quickly to medications including meclizine, steroids, and other treatments. MRI brain did NOT show a stroke. CT angiography scans of the head & neck showed a small portion of the right vertebral artery with something called dissection, and there was also suggestion of a possible "AVM" (arteriovenous malformation) in the left side of the brain. The dissection may have been brought on by the vomiting, and the AVM is often congenital. Dr Michael Florez from neurology saw you in consult and felt that the vertigo was coming from one of your ears. You likely have "vestibular neuritis." This is typically triggered by a viral infection, and given the COVID-19, it was likely triggered by such. Usually the vertigo is self-limited and gets better after a few days with rest, medications, and time. Recommendations - 1. for the next 3-4 days please take MECLIZINE 12.5mg THREE TIMES DAILY scheduled. This is for prevention and treatment of your vertigo. After that time period try stopping the meclizine and simply using it as needed. Please - no driving if you are having active vertigo and/or you are taking meclizine. 2. for nausea and/or vomiting - ondansetron 4mg every 6 hours as needed. 3. "medrol dose pack" - this is a 6-day steroid taper for your vertigo. Start this TOMORROW, 08/31/21. Take each dose with food. 4. suspected AVM - nothing to do at this time. Dr Florez and/or one of his ass istants at the neurology office will go over this in detail and make a referral, if necessary. However, there is nothing to do otherwise at this time. AVMs are malformed blood vessels which can be located in numerous places throughout the body including the brain. They are often congenital. 5. small vertebral artery abnormality (dissection) - please continue your plavix as previous. 6. COVID-19 infection - 08/29/21 was the likely first day of your illness. It is possible to develop other respiratory symptoms, sinus symptoms, fever, or GI symptoms (nausea, diarrhea, etc) over the next few days. Monitor for these symptoms. Plan to isolate at home, rest, and drink plenty of fluids. You are contagious to others at this time. The current guidelines for discontinuation of home isolation are - * no fever for 24 hours without use of fever-reducing medication AND * improvement in symptoms AND * 5 days have elapsed since the start of your illness Thus, if you get to day #6 of your illness and you meet the above 3 criteria you can leave your home/discontinue isolation. Please continue to wear a mask faithfully after coming out of isolation, however. Follow-up - see separate section Return to [facility] if - * your vertigo worsens despite using the above medications * you develop chest pain or shortness of breath * you have uncontrollable vomiting * you have any concerns about dehydration * you develop any weakness of either arm or either leg * you develop any visual changes or difficulty with balance * any other concerns It was our pleasure to care for you at [facility]! Continue to feel better, -Marquez Ferrell Pending Studies at Discharge: No Stand-Alone Forms: My [facility], Smoking Cessation Medications and DC Order Prescriptions: New meclizine 12.5 mg Tablet 12.5 mg PO TID Qty: 30 RF: 0 ondansetron 4 mg tablet,disintegrating 4 mg PO Q6H PRN (Reason: nausea and vomiting) Qty: 10 RF: 0 methylprednisolone [Medrol (Fredy)] 4 mg tablets,dose pack 4 mg PO .daily as directed Qty: 21 RF: 0 Continued amlodipine 10 mg tablet 10 mg PO QAM Qty: 90 RF: 3 clopidogrel [Plavix] 75 mg tablet 75 mg PO QAM Qty: 90 RF: 3 potassium chloride 20 mEq tablet extended release 20 meq PO BID Qty: 180 RF: 1 hydrochlorothiazide 25 mg tablet 25 mg PO QAM Qty: 90 RF: 1 tadalafil 5 mg tablet 5.5 mg PO HS Qty: 90 RF: 4 cyclobenzaprine 10 mg tablet 10 mg PO TID PRN (Reason: muscle spasm) Qty: 60 RF: 2 Zyrtec 10 mg capsule 10 mg PO HS Qty: 1 RF: 0 multivitamin Tablet 1 tab PO QAM RF: 0 calcium carbonate-vitamin D3 [Calcium 500 + D] 500 mg(1,250mg) -200 unit Tablet 1 tab PO QAM RF: 0 Probiotic 3 billion cell Capsule 3,000 mmu cells PO QAM RF: 0 omega 9-cbt-lgy-fish oil [Fish Oil] 1,000 mg (120 mg-180 mg) Capsule 1 cap PO QAM RF: 0 cholecalciferol (vitamin D3) 100 mcg (4,000 unit) capsule 100 mcg PO QAM RF: 0 Discontinued sildenafil [Viagra] 100 mg tablet 100 mg PO DAILY PRN (Reason: sexual activity) Qty: 30 RF: 1 Discharge Orders: Discharge Order (Routine); Ordered 08/30/21 Ordered By: Marquez Arroyo/Other Patient Handouts: Disinfecting Your Home of COVID-19, 2019 Novel Coronavirus, COVID-19 Home Care, ED Vertigo, Unspecified Admission Data Admit Date/Time: 08/29/21 15:43 Attending Provider: Marquez Ferrell Admit Provider: Kasandra Wilhelm Primary Care Provider: Bogdan Moody Other Providers: Kasandra Wilhelm ; Derrell Florez
[2021-08-30] MEDS ORDERED: REMDESIVIR 100 MG in SODIUM CHLORIDE 0.9% 230 ML IV SCH (20:00)
== END 2021-08-30 17:09 | disposition home or self-care (01) ==
LOC: EDINP 09:36 → ED 09:36 → SUATTDRO 15:43 → 2N 19:13